=== PATIENT | female | born 1960 | race African-American/Black ===

== ENCOUNTER 2016-11-16 19:26 | Emergency (ER) | payer OTHER ==
--- NOTE | 2016-11-16 19:41 | ERPHSYRPT ---
- History of Present Illness Source: patient Patient Subjective Stated Complaint: "I was getting out of my truck and I thought the ground was. even but it wasnt and I twisted my body around. My left ankle. twisted out and my left side hurts.". Dr. Velazquez Triage Nursing Assessment: Pt alert and oriented X 3, skin pwd pt able to put slight weight on her left ankle, minor swelling noted, CSM X 4. PT able to speak in. full sentences Physician History: Patient states approximately 3:30 this afternoon she stepped out of a pickup truck and rolled her left ankle and foot. A snap and also felt a twist in her left lower back area. Able to walk but with significant limp. Denies other injuries. No treatment prior to ER admission. Method of Injury: twisted Occurred: hours ago (4) Quality: constant, aching, cramping, throbbing Severity of Pain-Max: severe Severity of Pain-Current: severe (8 out of 10) Lower Extremities Pain: foot: left, ankle: left Modifying Factors: Improves With: rest Associated Symptoms: unable to bear weight (Painful), other (as noted above left lower back) Allergies/Adverse Reactions: No Known Drug Allergies Allergy (Unverified 11/16/16 19:42) Home Medications: Amlodipine/Atorvastatin [Amlodipine-Atorvast 2.5-10 mg] 2.5 11/16/16 [History] Hx Tetanus, Diphtheria Vaccination/Date Given: Yes Hx Influenza Vaccination/Date Given: No Hx Pneumococcal Vaccination/Date Given: No Immunizations Up to Date: Yes - Review of Systems Constitutional: No Symptoms Eyes: No Symptoms Ears, Nose, & Throat: No Symptoms Respiratory: No Symptoms Cardiac: No Symptoms Abdominal/Gastrointestinal: No Symptoms Genitourinary Symptoms: No Symptoms Musculoskeletal: Back Pain, Injury, Joint Pain, Other (as noted in history of present illness) Skin: No Symptoms Neurological: No Symptoms Psychological: No Symptoms Endocrine: No Symptoms Hematologic/Lymphatic: No Symptoms Immunological/Allergic: No Symptoms All Other Systems: Reviewed and Negative - Past Medical History Pertinent Past Medical History: Yes Neurological History: No Pertinent History ENT History: No Pertinent History Cardiac History: Hypertension Respiratory History: No Pertinent History Endocrine Medical History: No Pertinent History Musculoskeletal History: Arthritis GI Medical History: No Pertinent History History: No Pertinent History Psycho-Social History: No Pertinent History Female Reproductive Disorders: No Pertinent History - Past Surgical History Past Surgical History: Yes Neuro Surgical History: No Pertinent History Cardiac: No Pertinent History Respiratory: No Pertinent History Gastrointestinal: No Pertinent History Genitourinary: No Pertinent History Musculoskeletal: Other Female Surgical History: No Pertinent History Other Surgical History: trigger finger rt hand - Social History Smoking Status: Current every day smoker How long have you smoked: years Exposure to second hand smoke: Yes Drug Use: none Patient Lives Alone: Yes - Female History Hx Last Menstrual Period: histerectomy - Nursing Vital Signs Nursing Vital Signs: Initial Vital Signs Temperature 98.2 F 11/16/16 19:29 Pulse Rate 86 11/16/16 19:29 Respiratory Rate 16 11/16/16 19:29 Blood Pressure 151/76 11/16/16 19:29 O2 Sat by Pulse Oximetry 99 11/16/16 19:29 Pain Scale Pain Intensity 2 - Physical Exam General Appearance: mild distress, alert, anxiety Eyes, Ears, Nose, Throat Exam: normal ENT inspection Neck Exam: normal inspection Cardiovascular/Respiratory Exam: chest non-tender, normal breath sounds, regular rate/rhythm, heart sounds normal Gastrointestinal/Abdominal Exam: non-tender, soft Back Exam: muscle spasm (palpable tenderness left sacroiliac area consistent with strain and/or sprain from twist noted in history of present illness) Hips Exam: bilateral: non-tender, normal inspection, normal range of motion, no evidence of injury Legs Exam: bilateral leg: non-tender, normal inspection, normal range of motion , no evidence of injury Knees Exam: bilateral knee: non-tender, normal inspection, normal range of motion, no evidence of injury Ankle Exam: right ankle: non-tender, normal inspection, normal range of motion, no evidence of injury, bilateral ankle: limited range of motion, pain, soft tissue tenderness, swelling Foot Exam: right foot: non-tender, normal inspection, normal range of motion, no evidence of injury, left foot: pain, soft tissue tenderness (Proximal lateral ) Neuro/Tendon Exam: normal sensation (normal neurovascular motor function left foot), normal motor functions, normal tendon functions Mental Status Exam: alert, oriented x 3, cooperative Skin Exam: normal color, warm, dry SpO2 Interpretation: normal SpO2: 99 Oxygen Delivery: Room Air - Radiology Exams Left X-ray Interpretation: Reviewed by me, Discussed w/ radiologist, No Fracture, Other (soft tissue swelling lateral) Left Foot X-ray Interpretation: Reviewed by me, Discussed w/ radiologist, No Fracture Ordered Tests: Active Orders 24 hr Category Date Time Status [place] Bandage Application -[facility], 1928–1983 STAT Care 11/16/16 20:42 Active Crutches STAT Care 11/16/16 20:43 Active Ice Pack, Apply PRN Care 11/16/16 19:43 Active Splint STAT Care 11/16/16 20:42 Active ANKLE (3 VIEWS) Stat Exams 11/16/16 19:42 Completed FOOT (MINIMUM 3 VIEWS) Stat Exams 11/16/16 19:42 Completed Medication Summary Discontinued Medications Generic Name Dose Route Start Last Admin Trade Name Freq PRN Reason Stop Dose Admin Ibuprofen 600 mg 11/16/16 19:43 11/16/16 19:46 Motrin 600 Mg PO 11/16/16 19:44 600 mg STAT ONE Administration Ibuprofen Confirm 11/16/16 19:46 Motrin 600 Mg Administered 11/16/16 19:47 Dose 600 mg .ROUTE .STK-MED ONE - Progress Progress: improved, pain not gone completely, re-examined Progress Note: 11/17/16 03:57Patient's injury consistent with sprain of the left sacroiliac area as well as the lateral ligaments left ankle. See discharge diagnosis and instruction for conservative care with emphasis on importance of follow-up and no work next 2 days. Counseled pt/family regarding: diagnosis - Departure Time of Disposition: 20:44 Departure Disposition: Home Clinical Impression: Sprain and strain of deltoid (ligament) of ankle Qualifiers: Encounter type: initial encounter Laterality: left Qualified Code(s): S93.422A - Sprain of deltoid ligament of left ankle, initial encounter Strain of sacroiliac ligament Qualifiers: Encounter type: initial encounter Qualified Code(s): S33.6XXA - Sprain of sacroiliac joint, initial encounter Condition: Stable Critical Care Time: No Referrals: Provider,Unknown [Primary Care Provider] - Instructions: Ankle Sprain, Muscle Strain Additional Instructions: Very important to apply ice to the left ankle and left lower back area for 20 minutes per hour while awake his office possible next 48 hours. Also helpful to elevate left foot or ankle on 1 or 2 pillows. Tylenol to acetaminophen 500 mg 4 times a day and ibuprofen 600 mg 3 times a day with food or milk next 5 days for discomfort. Use crutches nonweightbearing to left lower extremity. Very important to be seen by medical provider for recheck within the next 48 hours. No work next 48 hours until rechecked by appropriate workman's comp provider as noted above.
[2016-11-16] MEDS ORDERED: MOTRIN 600 MG PO ONE (19:43)
[2016-11-16] MEDS ORDERED: MOTRIN 600 MG ONE (19:46)
--- NOTE | 2016-11-16 20:21 | XRAY ---
Exam: 3 views of the left ankle from 11/16/2016. Comparison: None. Indication: Left ankle joint pain, fall. Findings: AP, oblique, and lateral radiographs of the left ankle were obtained. I see minimal soft tissue swelling overlying the lateral malleolus. There is no evidence of acute fracture or dislocation. The left ankle joint mortise appears unremarkable. The subtalar joint is normal. No anterior left ankle joint effusion is seen. Impression: 1. No acute left ankle fracture or dislocation is seen. 2. Minimal soft tissue prominence overlies the lateral malleolus. Correlate clinically.
--- NOTE | 2016-11-16 20:29 | XRAY ---
Exam: 3 views of the left foot from 11/16/2016. Comparison: None. Indication: Fall, joint pain. Findings: AP, oblique, and lateral radiographs of the left foot were obtained. I see no acute fracture or dislocation of the left foot. The tarsal-metatarsal joints align correctly. 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 The remainder of the joint spaces appears unremarkable. A small accessory bone is seen adjacent to the tarsal cuboid (os peroneum). The plantar arch appears within normal limits. No calcaneal spurring is seen. No radiopaque soft tissue foreign body is seen. Impression: 1. No acute fracture or dislocation of the left foot is seen.
[2016-11-16 21:13] VITALS: BP 147/95; PULSE 78
[2016-11-17 03:57] VITALS: O2SAT 99
== END 2016-11-16 21:18 | disposition home or self-care (01) ==
LOC: ED 19:26
DX: S93.422A Sprain of deltoid ligament of left ankle, initial encounter (principal); S33.6XXA Sprain of sacroiliac joint, initial encounter; X50.0XXA Overexertion from strenuous movement or load, initial encounter
CPT/HCPCS: 73610; 73630; 99283; A9270-GY